=== PATIENT | male | born 1960 | race Caucasian/White ===

== ENCOUNTER 2017-03-29 14:05 | Inpatient (IN) ==
[2017-03-29] MEDS ORDERED: 0.9 % Sodium Chloride 1,000 ML IVC ONE ×2 (14:29→15:44)
--- NOTE | 2017-03-29 14:33 | Emergency Department Note ---
Disposition Clinical Impression: Uremia, ILIANA (acute kidney injury), Elevated troponin Disposition: Admitted As Inpatient Condition: Fair Referrals: NONE,PCP [Primary Care Provider] - Forms: ED Satisfaction Letter Neuro HPI - General Chief Complaint: ED Neuro Symptoms/Deficit Stated Complaint: Slurred Speech, Neck Pain Time Seen by Provider: 03/29/17 14:15 Source: patient Mode of arrival: ambulatory Limitations: no limitations Nursing Notes Reviewed: Yes Vital Signs Reviewed: Yes - History of Present Illness HPI Narrative: 56-year-old male history of hypertension, bovine valve replacement is for evaluation of neck pain and intermittent slurred speech since Monday. Patient' s last done well approximately at that time. Patient is not in the window of any TPA or thrombolytics. Patient denies any chest pressures of breath. Notes that the pain in the neck is worse with palpation. Denies any fevers or headache. Denies any nausea vomiting abdominal pain. No numbness or tingling of the extremities. No weakness of the extremities. Patient's slurred speech has been intermittent confirmed by the . Notes that he is at baseline currently. No history of strokes. Patient's blood glucose was normal. - Related Data Allergies/Adverse Reactions: Allergies Allergy/AdvReac Type Severity Reaction Status Date / Time No Known Allergies Allergy Verified 03/29/17 14:12 All systems ED: reviewed and negative except as stated. Constitutional: Reports: as per HPI. Denies: fever Eyes: Reports: as per HPI ENT ED: Reports: as per HPI Cardiovascular: Reports: as per HPI. Denies: chest pain Respiratory: Reports: as per HPI. Denies: cough, dyspnea Gastrointestinal: Reports: as per HPI. Denies: nausea, vomiting Genitourinary: Reports: as per HPI Musculoskeletal: Reports: as per HPI, neck pain Integumentary: Reports: as per HPI Neurological: Reports: as per HPI. Denies: headache, weakness, numbness Psychiatric: Reports: as per HPI Endocrine: Reports: as per HPI Hematological/Lymphatic: Reports: as per HPI Past Medical History - Past Medical History Medical history: Reports: arthritis, valvular heart disease, other - Social History Smoking Status: Never smoker Alcohol use: Reports: none Drug use: Reports: none Physical Exam - General Limitations: no limitations General appearance: alert, in no apparent distress - Head Head exam: atraumatic, normocephalic, normal inspection - Eye Eye exam: Present: normal appearance, EOMI - ENT ENT exam: normal exam, normal oropharynx - Neck Neck exam: Present: normal inspection, tenderness (Lateral paracervical) - Chest Chest inspection: Present: normal inspection, symmetric chest wall rise - Respiratory Respiratory exam: Present: normal lung sounds bilaterally. Absent: respiratory distress - Cardiovascular Cardiovascular exam: Present: regular rate, normal rhythm - Abdominal Exam Abdominal exam: Present: soft, Non-Tender - Extremities Exam Extremities exam: Present: normal inspection. Absent: pedal edema - Back Exam Back exam: Present: normal inspection - Neurological Exam Neurological exam: Present: alert, oriented X3, CN II-XII intact - Expanded Neurological Exam Patient oriented to: Present: person, place, time Speech: Present: fluid speech Cranial nerves: EOM function (II, III, IV, ): Normal, facial sensation (V): Normal, facial palsy (VII): Normal, spinal accessory function (XI): Normal, tongue deviation (XII): Normal Cerebellar function: finger to nose: Normal Motor strength - LUE: 5/5 Motor strength - RUE: 5/5 Motor strength - LLE: 5/5 Motor strength - RLE: 5/5 Upper motor neuron exam: pronator drift: Absent bilaterally Sensory exam upper extremity: light touch: Normal Sensory exam lower extremity: light touch: Normal Coma Scale Eye Opening: Spontaneous Coma Scale Motor Response: Obeys Commands Coma Scale Verbal Response: Oriented Coma Scale Total: 15 - Skin Skin exam: Present: warm, dry, intact, normal color Course Course Narrative: Patient seen and examined. Patient is not a stroke alert given the timeframe. Patient has no focal neurologic deficits. Patient's speech is back to baseline. Patient NIH of 0. Patient does not have any dysarthria on exam. Patient has no history of strokes. Patient will get a cardiac as well as neurological evaluation. Patient will get a CT of the head as well as cervical spine given his tenderness. Disposition likely admission. - Reevaluation(s) Reevaluation #1: Patient seen and examined. Patient denies any history of kidney problems. Patient had a "normal" physical year ago. Patient continues to produce urine. Time: 15:45 Vital Signs Temperature 98.6 F 03/29/17 14:07 Pulse Rate 80 03/29/17 14:07 Respiratory Rate 16 03/29/17 14:07 Blood Pressure 108/69 03/29/17 14:07 O2 Sat by Pulse Oximetry 97 03/29/17 14:07 Temperature 98.6 F 03/29/17 14:07 Pulse Rate 69 03/29/17 15:17 Respiratory Rate 16 03/29/17 15:17 Blood Pressure 95/61 03/29/17 15:17 O2 Sat by Pulse Oximetry 94 03/29/17 15:17 Oxygen Delivery Oxygen Delivery Nasal Cannula Neuro Symptoms/Deficit - MDM Narrative Medical decision making narrative: 56 yo male presents for evaluation of dysphagia. Patient had a neurologic as well as cardiac workup. Patient's CT his head shows no acute abnormalities. Patient's troponin was elevated at 0.04 with no acute EKG changes. However the patient's more concerning laboratory values show acute kidney injury which is likely prerenal given his history that he has been drinking her tolerating liquids due to his aggressive work lifestyle. Patient is also uremic which appear somewhat compensated with his bicarbonate. Patient continues to produce urine. Patient was given 2 L of normal saline. Patient also getting urinalysis and urine lites. She will be admitted to the hospital service further care management. Patient was given an aspirin given his negative head CT as well as elevated troponin. - Lab Data Lab results reviewed: Yes I reviewed the patient's lab results. Result diagrams: 03/29/17 14:25 03/29/17 14:25 Lab Results 03/29/17 03/29/17 03/29/17 Range/Units 14:25 14:25 14:25 WBC 7.1 (4.3-11.1) K/mcL RBC 3.61 L (4.19-5.50) M/mcL Hgb 11.0 L (12.9-16.9) g/dL Hct 35.3 L (37.5-50.1) % MCV 97.8 (83.0-100.0) fL MCH 30.5 (28.0-33.3) pg MCHC 31.2 L (31.6-35.5) g/dL RDW 14.6 H (11.5-14.5) % Plt Count 212 (140-400) K/mcL MPV 10.3 (9.4-12.4) fL Immature Gran % 0.4 (0-4) % Seg Neutrophils % 67.8 % Lymphocytes % 15.7 % Monocytes % 13.1 % Eosinophils % 2.7 % Basophils % 0.3 % Neutrophils # 4.8 (1.6-8.9) K/mcL Lymphocytes # 1.1 (0.6-4.6) K/mcL Monocytes # 0.9 (0.0-1.3) K/mcL Eosinophils # 0.2 (0.0-0.6) K/mcL Basophils # 0.0 (0.0-0.2) K/mcL PT 10.8 (9.4-12.1) Seconds INR 1.0 APTT 30.0 (26.0-36.0) Seconds Sodium 136 (136-145) mEq/L Potassium 5.5 H (3.5-4.5) mEq/L Chloride 99 (98-109) mEq/L Carbon Dioxide 20 (19-29) mEq/L BUN 110 H (8-26) mg/dL Creatinine 6.43 H (0.72-1.25) mg/dL Est GFR ( Amer) 11 L (> 60) Est GFR (Non-Af Amer) 9 L (> 60) BUN/Creatinine Ratio 17 (6-26) Glucose 99 (70-99) mg/dL Calculated Osmolality 317 H (280-300) Calcium 9.0 (8.6-10.8) mg/dL Troponin I (0-0.03) ng/mL 03/29/17 Range/Units 14:25 WBC (4.3-11.1) K/mcL RBC (4.19-5.50) M/mcL Hgb (12.9-16.9) g/dL Hct (37.5-50.1) % MCV (83.0-100.0) fL MCH (28.0-33.3) pg MCHC (31.6-35.5) g/dL RDW (11.5-14.5) % Plt Count (140-400) K/mcL MPV (9.4-12.4) fL Immature Gran % (0-4) % Seg Neutrophils % % Lymphocytes % % Monocytes % % Eosinophils % % Basophils % % Neutrophils # (1.6-8.9) K/mcL Lymphocytes # (0.6-4.6) K/mcL Monocytes # (0.0-1.3) K/mcL Eosinophils # (0.0-0.6) K/mcL Basophils # (0.0-0.2) K/mcL PT (9.4-12.1) Seconds INR APTT (26.0-36.0) Seconds Sodium (136-145) mEq/L Potassium (3.5-4.5) mEq/L Chloride (98-109) mEq/L Carbon Dioxide (19-29) mEq/L BUN (8-26) mg/dL Creatinine (0.72-1.25) mg/dL Est GFR ( Amer) (> 60) Est GFR (Non-Af Amer) (> 60) BUN/Creatinine Ratio (6-26) Glucose (70-99) mg/dL Calculated Osmolality (280-300) Calcium (8.6-10.8) mg/dL Troponin I 0.04 H* (0-0.03) ng/mL - Radiology Data Radiology results reviewed: Yes I reviewed the patient's radiology results. Chest X-Ray 03/29/17 14:29 IMPRESSION: Minimal left basilar atelectasis. No evidence of acute cardiopulmonary disease otherwise. D/ / Eliseo Rhoades MD / Eliseo Rhoades MD Interpreting Provider: Eliseo Rhoades MD Cervical Spine CT 03/29/17 14:30 IMPRESSION: No acute abnormality of the cervical spine. Moderate multilevel degenerative disc disease and facet arthropathy throughout the cervical spine. If there are neurologic symptoms, MRI could be performed for further evaluation. D/ / Quincy Leal MD / Quincy Leal MD Interpreting Provider: Quincy Leal MD Head CT 03/29/17 14:30 IMPRESSION: 1. No acute intracranial abnormality. D/ / Wilfrido Kaba MD / Wilfrido Kaba MD Interpreting Provider: Wilfrido Kaba MD - EKG Data EKG attestation: Yes I reviewed and interpreted this EKG. EKG shows normal: sinus rhythm Rate: normal Rhythm: NSR [place]/QRS: normal Heart block present: 1st Degree Q waves: aVR, v1 Interpretation: no acute changes, nonspecific ST-T wave changes NIH Stroke Scale - Level of Consciousness LOC: Alert - LOC Questions LOC Questions: Answers both correctly - LOC Commands LOC Commands: Performs both correctly - Best Gaze Best Gaze: Normal - Visual Visual: No visual loss - Facial Palsy Facial Palsy: Normal - Motor Arms Motor Arm-Left: No drift for 10 seconds Motor Arm-Right: No drift for 10 seconds - Motor Legs Motor Leg-Left: No drift for 5 seconds Motor Leg-Right: No drift for 5 seconds - Limb Ataxia Limb Ataxia: Absent of affected limb too weak to perform exam - Sensory Sensory: Normal - Best Language Best Language: No aphasia - Dysarthria Dysarthria: Normal - Extinction and Inattention Extinction and Inattention: Normal - NIHSS Total Score NIHSS Total Score: 0 Attestation Statement - Attestation Attestation: I, Freddie Herrera DO, examined this patient [id number] and my medical decision-making was reviewed with Dr. Mock PGY -3 , Resident Physician. I agree with the documented findings, disposition and treatment plan as described except to the extent set forth below. Please see my progress notes for details. 26-year-old male presents to emergency room with several weeks' worth of generalized malaise weakness and confusion and intermittent as well as slurred speech. The was concerned about emergency room. Initial evaluation was not concerning for an acute stroke. He is well outside the window. Evaluation was completed with concern for this issue including CT patient brought a significantly elevated creatinine in the urine at this time. No other infectious etiology noted. Patient has been using pain medication as well as anti-inflammatory medication heavily over the last several weeks to month. Patient is alert answers questions appropriately but slightly somnolent. Hospitals contacted for admission and treatment of what appears to be prerenal kidney injury with significantly elevated creatinine. No other lab abnormalities noted at this time except for mildly elevated troponin of 0.04. Patient stable laboratory. Patient was evaluated by the hospitalist at the bedside. No other concerns or issues noted. Patient will be admitted for definitive management. See detailed documentation by resident physician
[2017-03-29 15:09] LABS: Basophils % 0.3 %; Eosinophils # 0.2 K/mcL (0.0-0.6); Eosinophils % 2.7 %; Hematocrit 35.3 % (37.5-50.1); Immature Granulocytes % 0.4 % (0-4); Lymphocytes # 1.1 K/mcL (0.6-4.6); Lymphocytes % 15.7 %; Mean Corpuscular HGB Conc 31.2 g/dL (31.6-35.5); Mean Corpuscular Hemoglobin 30.5 pg (28.0-33.3); Mean Corpuscular Volume 97.8 fL (83.0-100.0); Mean Platelet Volume 10.3 fL (9.4-12.4); Monocytes # 0.9 K/mcL (0.0-1.3); Monocytes % 13.1 %; Neutrophils # 4.8 K/mcL (1.6-8.9); Platelet Count 212 K/mcL (140-400); Red Blood Count 3.61 M/mcL (4.19-5.50); Red Cell Distribution Width 14.6 % (11.5-14.5); Segmented Neutrophils % 67.8 %
[2017-03-29 15:12] LABS: Prothrombin Time 10.8 Seconds (9.4-12.1)
[2017-03-29 15:20] LABS: Potassium 5.5 mEq/L (3.5-4.5)
[2017-03-29] MEDS ORDERED: Aspirin 81 MG TAB.CHEW PO ONE (15:43)
[2017-03-29] MEDS ORDERED: Acetaminophen 325 MG TABLET PO PRN (17:19)
[2017-03-29] MEDS ORDERED: Naloxone 0.4 MG/ML INJ IVP PRN (17:19)
[2017-03-29] MEDS ORDERED: Ondansetron 4 MG/2 ML VIAL IVP PRN (17:19)
[2017-03-29] MEDS ORDERED: Pantoprazole 40 MG VIAL IVP SCH (17:30)
[2017-03-29 17:36] LABS: Bilirubin,Urine Negative (Negative); Blood,Urine Negative (Negative); Clarity,Urine Turbid (Clear); Color,Urine Yellow (Yellow); Glucose,Urine (UA) Normal (Normal); Ketones,Urine Negative (Negative); Leukocyte Esterase,Urine Negative (Negative); Nitrite,Urine Negative (Negative); PH,Urine 5.5 pH Units (5.0-8.0); Protein,Urine Trace mg/dL (Neg-Trace); Specific Gravity,Urine 1.017 (1.010-1.025); Urobilinogen,Urine Normal (Normal)
[2017-03-29 17:41] LABS: Bacteria,Urine None Seen per hpf (None-Few); Hyaline Casts,Urine None Seen per lpf (None-Few); Squamous Epithelial Cell,Urine None Seen per lpf (None-Few); WBC,Urine 0-3 per hpf (0-3)
--- NOTE | 2017-03-29 17:52 | Internal Med History&Physical ---
<Jose Urena - Last Filed: 03/29/17 18:55> Date of Encounter: 03/29/17 Time of Encounter: 16:30 Assessment and Plan (1) ILIANA (acute kidney injury) Current visit: Yes Status: Acute Assess: Patient presents with acute kidney injury most likely due to a combination of patient's possible dehydration related to overworking himself in the yard over the weekend and his chronic use of nephrotoxic pain medications for many years. Patient reports that he has no problem making large amounts of urine. Patient's current GFR on admission is 9 and creatinine is 6.43. Plan: Will hold patient's pain medications at the present time Administer IV 0.9 NS @ 100 mL/HR Tylenol 650 mg Q6 PRN for pain Monitor I&O and daily weight Follow-up labs ordered to monitor patient's GFR and creatinine levels Nephrology consult ordered (2) Elevated troponin Current visit: Yes Status: Acute Assess: Patient presents with acute elevated troponin upon admission to ED. Patient's initial troponin was 0.04. Patient denies any chest pain or cardiac symptoms at this time as well as any previous cardiac event or AK. Elevated troponin may be related to patient's current ILIANA. Plan: Trend troponins x2 Patient placed on continuous cardiac telemetry Nitroglycerin ordered PRN Echocardiogram ordered (3) Abnormal ECG Current visit: Yes Status: Acute Assess: Patient presents with acute EKG changes today showing ectopic atrial rhythm with first-degree AV block with occasional supraventricular premature complexes and nonspecific T-wave abnormality. Plan: Repeat EKG Patient to be placed on continuous cardiac telemetry Trend troponins x2 Echocardiogram ordered Administer IV 0.9 NS @ 100 mL/HR for possible dehydration (4) Neck pain, acute Current visit: Yes Status: Acute Assess: Patient presents with reported acute neck pain since Monday when he worked in his yard for 9 hours. Patient states he was cutting a large and tall shrubbery for 9 hours and attributes his neck pain to overworking his muscles. Patient currently takes several pain medications which are nephrotoxic and could be related to his current GFR of 9 due to overuse. Plan: Heating pad ordered for patient's neck PRN Will hold patient's pain medications due to nephrotoxicity and current ILIANA/GFR of 9 Administer Tylenol 650 mg Q6 (5) Muscle cramps Current visit: Yes Status: Acute Assess: Patient reports acute muscle cramps since Monday when he overworked in his yard for 9 hours. Patient states muscle cramps are mostly in his legs but also in his arms. Plan: Magnesium level ordered Will hold patient's pain medications and administer Tylenol 650 mg due to current ILIANA Monitor patient for pain (6) Somnolence Current visit: Yes Status: Acute Assess: Patient presents with acute somnolence which he attributes to over working in his yard on Monday for 9 hours and not sleeping well since. Patient also takes several types of pain medications for chronic back pain which can also be leading to his somnolent state. Plan: Falls precautions Up with assist Bed rest with bathroom privileges with assist only Will hold patient's pain medications and continue Tylenol 650 Q6 PRN due to current GFR of 9 and current somnolence (7) DVT prophylaxis Current visit: Yes Status: Acute Assess: Patient placed on DVT prophylaxis due to current admission protocol and bedrest status. Plan: Heparin 5,000 units SQ Q8 ordered Internal Medicine - H&P: HPI Chief complaint: Neck pain/Generalized fatigue Admitted From: Emergency Dept Plans for Post Hospital Care: Home History of present illness: Mr. Grey is a 56 year old male presents from the ED with chief complaint of muscle cramps, neck pain, and generalized weakness. Upon admission to ED, patient was originally reviewed for possible neuro symptoms and deficits, the patient is neurologically intact on examination and states his somnolence and speech slurring is due to being tired from having no sleep since Monday. Patient reports working in his yard on Monday from noon until 9 PM with heavy exertion to cut hedges and shrubbery. Patient now presents with pain in his neck that he states is most likely due to being overworked. He also describes muscle cramps in legs as well as arms. Patient has no history of stroke, previous AK, DVT, PE, or TIAs. Patient currently denies any chest pressure or pain, recent illness, fever, chills, headache, nausea, vomiting, abdominal pain , numbness or tingling of the extremities, diarrhea, constipation, dizziness, presyncope, or syncope. Patient reports he is a former smoker but quit in 1996 after smoking one half packs per day. Patient reports occasional alcohol use but denies drug use. Patient does report chronic back pain and chronic NSAID use for many years and is found to have creatinine level .43 and GFR 9 upon admission today with acute kidney injury. Patient's current hemoglobin is 11.0 and hematocrit is 35.3 which is normally near his baseline. Also on admission, troponin level is 0.04. CT of head without contrast today shows no acute intracranial abnormality. CT of the cervical spine without contrast today shows no acute abnormality of the cervical spine moderate multilevel degenerative disc disease and facet arthropathy throughout the cervical spine. Single view of the chest today shows minimal left basilar atelectasis and no evidence of acute cardiopulmonary disease otherwise. Patient is at moderate risk for further morbidity based on current symptoms and acute kidney injury related to chronic NSAID use and will be placed as inpatient status with orders for troponins trended 2, continuous cardiac telemetry, supplemental O2 with SPO2 monitoring, falls/safety precautions,gentle hydration of IV 0.9 normal saline at 100 mL per hour due to possible dehydration. Follow-up labs ordered to monitor patient's GFR and creatinine level. We will hold the patient's current pain medications due to nephrotoxicity and administer Tylenol 650 mg every 6 when necessary. Patient to be monitored closely for signs of increasing renal, cardiac, and/or respiratory distress. Time spent with patient greater than 40 minutes. Past Med Surg Social Fam HX - Past Medical History Source: patient Medical history: arthritis, renal disease, valvular heart disease, other - Social History Smoking Status: Never smoker Alcohol use: none Drug use: none Current living situation: Home, With Family Activity Level: Independent ambulation Recent Out of Country Travel Within the Last 8 Weeks: No Exposure or Possible Exposure to Illness During Travel: No - Family History Father Race: Family Member Ethnicity: Non- Living Status: Age at : 77 Cause of : AK Hx Family Cardiac Disorders: Yes (AK, Stroke, CHF, HTN, HLD) Hx Family Genitourinary Disorders: Yes (Renal disease) Hx Family Endocrine Disorder: Yes (DM) Mother Race: Family Member Ethnicity: Non- Living Status: Still Living Hx Family Cancer: Yes (Colon) Brother Race: Family Member Ethnicity: Non- Living Status: Still Living Hx Family Medical Disorders: No Sister Race: Family Member Ethnicity: Non- Living Status: Still Living Hx Family Medical Disorders: No Internal Medicine - H&P: Meds Aspirin Enteric Coated [Aspirin EC] 81 mg PO DAILY 03/29/17 [History] FentaNYL PATCH [Duragesic] 12 mcg TD Q72H 03/29/17 [History] FentaNYL PATCH [Duragesic] 25 mcg TD Q72H 03/29/17 [History] Ibuprofen [Ibuprofen] 800 mg PO TID 03/29/17 [History] Lisinopril [Zestril] 20 mg PO TID 03/29/17 [History] Oxycodone HCl 15 mg PO Q6H PRN 03/29/17 [History] Pregabalin [Lyrica] 150 mg PO TID PRN 03/29/17 [History] Tizanidine HCl 4 mg PO QID 03/29/17 [History] Tramadol HCl [Ultram] 50 mg PO Q4H PRN 03/29/17 [History] 3 Allergy/AdvReac Type Severity Reaction Status Date / Time No Known Allergies Allergy Verified 03/29/17 14:12 All Systems PM: A 10-system review of systems was performed and is negative for pertinent findings except as documented above in the HPI. - Constitutional Constitutional: as per HPI, fatigue, weakness, no chills, no fever(s), no night sweats - EENT Eyes: no change in vision, no discharge, no pain, no photophobia Ears: no ear discharge, no ear pain, no tinnitus Nose, mouth and throat: no dysphagia, no nasal discharge, no neck pain, no sore throat - Breasts Breasts: as per HPI - Cardiovascular Cardiovascular ROS IM: as per HPI, dyspnea, dyspnea on exertion, irregular heart rhythm, no chest pain, no diaphoresis, no lightheadedness, no palpitations , no syncope - Respiratory Respiratory: dyspnea, dyspnea on exertion, no cough, no wheezing, no excessive phlegm production - Gastrointestinal Gastrointestinal: no abdominal pain, no diarrhea, no hematemesis, no hematochezia, no melena, no nausea, no vomiting - Genitourinary Genitourinary ROS male: as per HPI - Musculoskeletal Musculoskeletal ROS IM: no numbness, no tingling - Integumentary Integumentary IM: no rash, no unusual bruising - Neurological Neurological ROS: no confusion, no convulsions, no focal weakness, no numbness, no tingling, no tremor(s) - Psychiatric Psychiatric: as per HPI - Endocrine Endocrine IM: as per HPI - Hematologic/Lymphatic Hematologic/Lymphatic: no easy bruising - Allergic/Immunologic Allergic/Immunologic: as per HPI - Constitutional Vitals: Temp Pulse Resp BP Pulse Ox 98.6 F 64 16 113/95 97 03/29/17 14:07 03/29/17 17:32 03/29/17 17:32 03/29/17 17:32 03/29/17 17:32 General appearance: Present: cooperative, A&O X 3, morbidly obese, pleasant, no acute distress, answers questions appropriately - Head Head exam: Present: atraumatic, normocephalic - Eye Eye exam: Present: PERRL, conjuntiva pink, sclera anicteric Pupils: Present: PERRL - ENT ENT exam: Present: normal exam, normal external ear exam - Neck Neck exam general surgery: Present: normal inspection, supple, trachea midline. Absent: lymphadenopathy - Respiratory Respiratory exam: Present: CTAB. Absent: accessory muscle use, rales, rhonchi, wheezes - Cardiovascular Cardiovascular exam: Present: irregular rhythm - GI/Abdominal GI/Abdominal exam: Present: normal bowel sounds, soft, no peritoneal signs. Absent: distended, tenderness - Rectal Rectal exam: Present: deferred - Additional comments: exam deferred. - Extremities Exam Extremities exam: Present: warm, radial pulses palpable and symmetrical. Absent : calf tenderness, cyanotic, pedal edema - Back Exam Back exam: Present: normal inspection - Neurological Exam Neurological exam: Present: CN II-XII intact, oriented X3, no focal deficits. Absent: pronater drift, facial droop, speech deficit - Psychiatric Psychiatric exam: Present: normal affect, normal mood - Skin Skin exam: Present: dry, intact Internal Med - H&P Results - Labs CBC & Chem 7: 03/29/17 14:25 03/29/17 14:25 - EKG Data Prior EKG available for review: yes When compared to previous EKG: there are significant changes EKG comments: 03/29/17 17:59 EKG dated 05/05/06 shows first-degree AV block, premature atrial contractions, Q waves in septal leaflet, probable old septal infarction. EKG dated 03/29/17 shows ectopic atrial rhythm with first-degree AV block with occasional supraventricular premature complexes, nonspecific T-wave abnormality. - Diagnostic Studies Chest x-ray Additional comments: Impressions Chest X-Ray 03/29/17 14:29 IMPRESSION: Minimal left basilar atelectasis. No evidence of acute cardiopulmonary disease otherwise. D/ / Eliseo Rhoades MD / Eliseo Rhoades MD Interpreting Provider: Eliseo Rhoades MD CT scan - head Additional comments: Impressions Head CT 03/29/17 14:30 IMPRESSION: 1. No acute intracranial abnormality. D/ / Wilfrido Kaba MD / Wilfrido Kaba MD Interpreting Provider: Wilfrido Kaba MD Other Images Additional comments: Impressions Cervical Spine CT 03/29/17 14:30 IMPRESSION: No acute abnormality of the cervical spine. Moderate multilevel degenerative disc disease and facet arthropathy throughout the cervical spine. If there are neurologic symptoms, MRI could be performed for further evaluation. D/ / Quincy Leal MD / Quincy Leal MD Interpreting Provider: Quincy Leal MD <Michele Pacheco - Last Filed: 03/30/17 07:49> Date of Encounter: 03/30/17 Internal Medicine - H&P: HPI History of present illness: Mr. Grey is a 56 year old male All Systems PM: A 10-system review of systems was performed and is negative for pertinent findings except as documented above in the HPI. - Constitutional Vitals: Temp Pulse Resp BP Pulse Ox 98.0 F 67 16 126/78 94 03/30/17 07:19 03/30/17 07:19 03/30/17 07:19 03/30/17 07:19 03/30/17 07:19 Internal Med - H&P Results - Labs CBC & Chem 7: 03/30/17 03:51 03/30/17 03:51 Labs: Short CBC 03/30/17 Range/Units 03:51 WBC 4.5 (4.3-11.1) K/mcL Hgb 10.7 L (12.9-16.9) g/dL Hct 34.3 L (37.5-50.1) % Plt Count 202 (140-400) K/mcL Neutrophils # 2.7 (1.6-8.9) K/mcL BMP 03/30/17 03:51 Sodium 135 L Potassium 5.5 H Chloride 105 Carbon Dioxide 21 BUN 91 H Creatinine 3.04 H D Glucose 125 H Calcium 8.8 Cardiac Enzymes 03/29/17 03/30/17 Range/Units 20:12 03:51 Troponin I 0.03 0.03 (0-0.03) ng/mL - Impressions ITS Impressions Retroperitoneum Ultrasound 03/29/17 21:00 IMPRESSION: Unremarkable ultrasound of the kidneys without hydronephrosis. Increased postvoid bladder volume. Finding is nonspecific but can be seen with bladder outlet obstruction. D/ / 03/30/2017 07:01:38 Salas Cerrato MD / rustay Interpreting Provider: Salas Cerrato MD - Attending Attestation I had personally seen and examined the patient on March 29 and discussed the care management plan with advance nurse practitioner. Patient came in with neck pain which she was perhaps related to the physical activity he had while he was cleaning the yard. ER did CT cervical spine which was unremarkable except for some mild DJD. Incidental finding of acute renal failure noted in the ER and upon further exploration it was noted that patient has been using ibuprofen 800 mg 3 times a day on regular basis for 5 years or more decided to heavy dose oxycodone. He appeared quite somnolent but they are fully oriented therefore we have decided not to give him any more narcotics at this point. Nephrology is consulted. There is a concerned it could be ATN versus prerenal or a combination of both therefore a fluid challenge will also be given.
[2017-03-29] MEDS ORDERED: Nitroglycerin 0.4 MG TAB.SUBL SL PRN (18:22)
[2017-03-29] MEDS: 0.9 % Sodium Chloride 1,000 ML IVC SCH (18:59)
[2017-03-29] MEDS: *HR* Heparin 5,000 UNIT/ML VIAL SQ SCH (23:49)
[2017-03-29] MEDS ORDERED: *HR* OxyCODONE Immed Rel 15 MG TABLET PO PRN (23:57)
[2017-03-30] MEDS: 0.9 % Sodium Chloride 1,000 ML IVC SCH (02:06)
[2017-03-30 04:26] LABS: Basophils % 0.2 %; Eosinophils # 0.3 K/mcL (0.0-0.6); Eosinophils % 6.4 %; Hematocrit 34.3 % (37.5-50.1); Hemoglobin 10.7 g/dL (12.9-16.9); Immature Granulocytes % 0.4 % (0-4); Lymphocytes # 0.9 K/mcL (0.6-4.6); Lymphocytes % 20.8 %; Mean Corpuscular HGB Conc 31.2 g/dL (31.6-35.5); Mean Corpuscular Hemoglobin 30.2 pg (28.0-33.3); Mean Corpuscular Volume 96.9 fL (83.0-100.0); Mean Platelet Volume 10.5 fL (9.4-12.4); Monocytes # 0.6 K/mcL (0.0-1.3); Monocytes % 12.4 %; Neutrophils # 2.7 K/mcL (1.6-8.9); Platelet Count 202 K/mcL (140-400); Red Blood Count 3.54 M/mcL (4.19-5.50); Red Cell Distribution Width 14.5 % (11.5-14.5); Segmented Neutrophils % 59.8 %
[2017-03-30 04:31] LABS: INR 0.9; Prothrombin Time 9.9 Seconds (9.4-12.1)
[2017-03-30 04:34] LABS: Activated Partial Thrombo Time 28.7 Seconds (26.0-36.0)
[2017-03-30 04:44] LABS: Hemoglobin A1C 5.5 %
[2017-03-30 04:50] LABS: Calcium 8.8 mg/dL (8.6-10.8); Chol/HDL Ratio 3.1 (0-4.9); Magnesium 2.9 mg/dL (1.6-2.6); Potassium 5.5 mEq/L (3.5-4.5)
[2017-03-30] MEDS: Aspirin Enteric Coated 81 MG Tablet PO SCH (10:22)
[2017-03-30] MEDS: *HR* Heparin 5,000 UNIT/ML VIAL SQ SCH ×2 (10:22→16:28)
--- NOTE | 2017-03-30 12:00 | Nephrology Consult Note ---
Date of Encounter: 03/30/17 Time of Encounter: 11:56 Assessment and Plan (1) NICK (acute kidney injury) Current Visit: Yes Status: Acute Patient with nonoliguric acute kidney injury that appears to be secondary to prerenal azotemia/ATN from dehydration along with chronic NSAID use, and hypotension. At this time his renal function appears to be improving and his urine output is increasing. I anticipate that the patient's renal function will return to baseline (which is unknown at this time). I recommend discontinuing NSAIDs. Use Tylenol or opiates as needed for pain. Continue to hold lisinopril for now. Adjust medication for renal function. Renal ultrasound without obstruction. I recommended additional fluid today. (2) Rhabdomyolysis Current Visit: Yes Status: Acute Secondary to exertion. Follow CPK levels. Continue intravenous hydration. Qualifiers: Qualified Code(s): M62.82 - Rhabdomyolysis (3) Urinary retention Current Visit: Yes Status: Acute Etiology is unclear. I recommend repeating on an outpatient basis. Check postvoid residual prior to discharge. (4) Diastolic dysfunction Current Visit: Yes Status: Acute Patient with diastolic dysfunction. Control high blood pressure. (5) Hypertension Current Visit: Yes Status: Acute Blood pressures on the low side now. Continue to hold lisinopril. I recommend resuming lisinopril once his systolic pressure is greater than 130. Qualifiers: Qualified Code(s): I10 - Essential (primary) hypertension History of Present Illness - Reason for Consult Consult date: 03/30/17 Acute Kidney Injury - Chief Complaint Nick - History of Present Illness Mr. Grey is a 56 yo man with a history of valvular heart disease who presents with somnolence that was felt to be secondary to exertion from working 9 hours without a break. He was found to have acute kidney injury upon admission. He denies a history of kidney disease. He does admit to chronic NSAID use. At the time my evaluation his is at his bedside he had no chest pain, shortness of breath, or other complaints. Past Med Surg Social Fam HX - Past Medical History Medical history: arthritis, renal disease, valvular heart disease, other - Social History Smoking Status: Never smoker Alcohol use: none Drug use: none - Family History Father Race: Family Member Ethnicity: Non- Living Status: Age at : 77 Cause of : LA Hx Family Cardiac Disorders: Yes (LA, Stroke, CHF, HTN, HLD) Hx Family Genitourinary Disorders: Yes (Renal disease) Hx Family Endocrine Disorder: Yes (DM) Mother Race: Family Member Ethnicity: Non- Living Status: Still Living Hx Family Cancer: Yes (Colon) Brother Race: Family Member Ethnicity: Non- Living Status: Still Living Hx Family Medical Disorders: No Sister Race: Family Member Ethnicity: Non- Living Status: Still Living Hx Family Medical Disorders: No Medications and Allergies Aspirin Enteric Coated [Aspirin EC] 81 mg PO DAILY 03/29/17 [History] FentaNYL PATCH [Duragesic] 12 mcg TD Q72H 03/29/17 [History] FentaNYL PATCH [Duragesic] 25 mcg TD Q72H 03/29/17 [History] Ibuprofen [Ibuprofen] 800 mg PO TID 03/29/17 [History] Lisinopril [Zestril] 20 mg PO TID 03/29/17 [History] Oxycodone HCl 15 mg PO Q6H PRN 03/29/17 [History] Pregabalin [Lyrica] 150 mg PO TID PRN 03/29/17 [History] Tizanidine HCl 4 mg PO QID 03/29/17 [History] Tramadol HCl [Ultram] 50 mg PO Q4H PRN 03/29/17 [History] 3 Allergy/AdvReac Type Severity Reaction Status Date / Time No Known Allergies Allergy Verified 03/29/17 14:12 Review of Systems All Systems: reviewed and no additional remarkable complaints except as stated ( As documented in history of present illness) Exam - Vital Signs Vital signs: Initial Vital Signs Temp Pulse Resp BP Pulse Ox 98.6 F 80 16 108/69 97 03/29/17 14:07 03/29/17 14:07 03/29/17 14:07 03/29/17 14:07 03/29/17 14:07 Vital Signs - Last 8 Hours Temp Pulse Resp BP Pulse Ox 03/30/17 11:05 97.9 F 60 16 118/72 95 03/30/17 07:19 98.0 F 67 16 126/78 94 03/30/17 04:23 98.3 F 73 16 137/79 90 Intake and Output 03/29/17 03/30/17 03/30/17 23:59 07:59 15:59 Intake Total 4750 / 4750 1640 / 1640 Output Total 1100 / 1100 2049 Balance 3650 / 3650 -410 / -410 Intake: IV Fluids 1000 / 1000 1400 / 1400 0.9 % Sodium Chloride 1, 1000 / 1000 1400 / 1400 000 ML @ 100 mls/hr IVC . Q10H JESSICA Rx#:[id number] Oral 3750 / 3750 240 / 240 Output: Urine 1100 / 1100 2049 Other: Meal TURKEY SANDWICH,[employer]. MILK # Voids 1 1 Weight 121.109 kg 131.4 kg Patient Weight 03/30/17 23:59 Weight 131.4 kg - General Appearance General appearance: well-developed, well-nourished, obese EENT: ATNC Neck: supple Respiratory: clear Cardiology: edema, regular rate, regular rhythm Gastrointestinal: no tenderness, obese Integumentary: warm and dry Neurologic: alert and oriented x3 Musculoskeletal: no cyanosis Psychiatric: mood/affect appropriate Results - Lab Results 03/30/17 03:51 03/30/17 03:51 Most recent lab results Calcium 8.8 mg/dL (8.6-10.8) 03/30/17 03:51 Magnesium 2.9 mg/dL (1.6-2.6) H 03/30/17 03:51 Urine Creatinine 133 mg/dL 03/29/17 17:14 Urine Sodium 67.0 mEq/L 03/29/17 17:14 Consult Discharge Plan - Plan Referrals: NONE,PCP [Primary Care Provider] -
[2017-03-30] MEDS: *HR* OxyCODONE Immed Rel 15 MG TABLET PO PRN (16:28)
[2017-03-30 16:47] LABS: BUN/Creatinine Ratio 41 (6-26); Blood Urea Nitrogen 60 mg/dL (8-26); Calcium 9.4 mg/dL (8.6-10.8); Carbon Dioxide 24 mEq/L (19-29); Chloride 108 mEq/L (98-109); Glucose 95 mg/dL (70-99); Osmolality,Calculated 301 (280-300); Potassium 5.5 mEq/L (3.5-4.5); Sodium 137 mEq/L (136-145); eGFR For African Americans > 60 (> 60); eGFR For Non-African Americans 50 (> 60)
--- NOTE | 2017-03-30 16:55 | Electrocardiograph Report ---
[place] [id number] Test Date: 2017-03-29 Pat Name: Marcos Grey Department: 102 Room: 2A25 Gender: M [employer]: : 1960 Requested By: James Mock Order Number: [id number] Reading MD: Alie Chong Measurements Intervals Cost Rate: 74 P: -49 PA: 231 QRS: 18 QRSD: 102 T: 95 QT: 366 QTc: 394 Interpretive Statements POSSIBLE ECTOPIC ATRIAL RHYTHM WITH FIRST DEGREE AV BLOCK NONSPECIFIC T-WAVE ABNORMALITY Electronically Signed On 03-30-2017 16:53:40 EDT by Alie Chong
[2017-03-30 16:56] LABS: Bilirubin,Urine Negative (Negative); Blood,Urine Small (Negative); Clarity,Urine Clear (Clear); Color,Urine Yellow (Yellow); Glucose,Urine (UA) Normal (Normal); Ketones,Urine Negative (Negative); Leukocyte Esterase,Urine Negative (Negative); Nitrite,Urine Negative (Negative); Protein,Urine Negative (Neg-Trace); Specific Gravity,Urine 1.018 (1.010-1.025); Urobilinogen,Urine Normal (Normal)
[2017-03-30 16:59] LABS: Bacteria,Urine None Seen per hpf (None-Few); Hyaline Casts,Urine None Seen per lpf (None-Few); RBC,Urine 0-3 per hpf (0-3); Squamous Epithelial Cell,Urine Few per lpf (None-Few); WBC,Urine 0-3 per hpf (0-3)
[2017-03-30 17:27] LABS: Creatinine,Urine 47 mg/dL; Protein/Creatinine Ratio,Urine 0.15 mg/mg (0-0.20)
--- NOTE | 2017-03-30 18:53 | Event Note ---
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 HEENT: Moist oral mucosa. Chest: Central chest scar, chest is CTAB, HS S1, S2, soft, no m/g/r, Abdomen is obese, no pedal edema. Musculoskeletal: No focal tenderness, no compartment syndrome Labs and Imaging reviewed: K-5.5, BUN/Cr 91/3.04(111/6.43), CK 5111, UA noted, feNA 2.4%, Renal USS: Significant post-void volume, no hydro nephrosis, CXR: Negative for cardiopulmonary process, C-spine CT: DJD, no fractures A/P: Non-oliguric ILIANA Multifactorial: From dehydration, NSAID use, rhabdomyolysis, suspected BPH with mild CELAYA. Improving, continue IVF hydration. Avid nephrotoxins, follow ECHO. Elevated troponin is adynamic possibly from elevated CK. Monitor renal function, trend CK. Start tamsulosin for suspected BPH. Rest of details as in resident physicians documentation
--- NOTE | 2017-03-30 20:58 | Internal Med Progress Note ---
<Sj Alvarez - Last Filed: 03/30/17 21:03> Date of Encounter: 03/30/17 Time of Encounter: 15:30 - Assessment and plan (1) Hyperkalemia Current Visit: Yes Status: Acute Assessment and plan: Potassium was at 5.5. Kayexalate was given. Continue IV fluids. (2) Hypermagnesemia Current Visit: Yes Status: Acute Assessment and plan: Magnesium at 2.9. Patient's deep tendon reflexes normal. Continue IV fluids. (3) ILIANA (acute kidney injury) Current Visit: Yes Status: Acute Assessment and plan: Patient presents with signs of pre-renal, instrinsic, and possible post-renal injury. His FENa of 2.4% suggests an instrinisc RF. His BUN/Creatinine ration of 41 suggests pre-renal azotemia most likely secondary to chronic NSAID, rhabdomyalisis, and dehydration. Renal u/s shows increased postvoid bladder volume, which could correlate with a post-renal obstruction. His creatinine has improved to 1.45 from 3.04. Continue IV fluids. (4) Abnormal ECG Current Visit: Yes Status: Acute Assessment and plan: First degree AV blocks with occasional SVTs. No significant changes when compared to ECG from 2006. Patient denies chest pain. (5) DVT prophylaxis Current Visit: Yes Status: Acute Assessment and plan: On heparin. (6) Elevated troponin Current Visit: Yes Status: Acute Assessment and plan: Tropnins were 0.03 and 0.03. Likely secondary to dehydration. Patient denies chest pain. (7) Muscle cramps Current Visit: Yes Status: Acute Assessment and plan: Likely secondary to rhabdomyalisis and possibly hyperkalemia. Currently denies any pain. Continue IV fluids. (8) Rhabdomyolysis Current Visit: Yes Status: Acute Assessment and plan: CK was elevated at 5111 on presentation. Currently denies any pain. Continue IV fluids. Qualifiers: Qualified Code(s): M62.82 - Rhabdomyolysis - Time Spent With Patient less than 15 minutes - Subjective Interval history: Patient is a 56 yo M that presented to the ED yesterday for neck pain and fatigue. Patient states that he was doing yardwork for several hours on Monday. He started developing muscular cramps in his leg and arms. When he presented to the ED, he denied any chest pain or recent illness, fever, chills, headaches, nausea, vomiting, abdominal pain, numbness/tingling, syncope or presyncope. He denies any drug use. Patient also suffers from chronic lower back pain with chronic NSAID use for many years. CT of cervical spine showed no acute abnormality. Troponin on arrival was 0.04. CT of head showed no acute abnormality. CXR showed minimal bibasilar atelectasis with no evidence of acute cardioppulomary disease. Plan was to trend troponins, telemetry, IVF, and follow -up with his GFR and creatinine. Pain meds were held due to nephrotoxicity. Renal ultrasound showed no signs of hydronephrosis. When spoken to today, he currently denies any muscular cramps, numbness/tingling, chest pain, shortness of breath, headaches, syncope, light-headedness, dysuria, constipation, diarrhea , fever, or chills. . - Constitutional Vitals: Temp Pulse Resp BP Pulse Ox 98.0 F 60 22 165/93 96 03/30/17 20:34 03/30/17 20:34 03/30/17 20:34 03/30/17 20:34 03/30/17 20:34 General appearance: Present: cooperative, A&O X 3, morbidly obese, pleasant, no acute distress, answers questions appropriately - Respiratory Respiratory exam: Present: CTAB. Absent: respiratory distress, rhonchi, wheezes , tachypnea - Cardiovascular Cardiovascular exam: Present: RRR, +S1, +S2, systolic murmur (2/6 systolic murmur of R sternal border.) - GI/Abdominal GI/Abdominal exam: Present: normal bowel sounds, soft. Absent: distended, guarding, rebound, tenderness - Extremities Exam Extremities exam: Present: normal capillary refill. Absent: pedal edema Additional comments: pedal pulses intact bilaterally. - Neurological Exam Neurological exam: Present: reflexes normal, strengths equal and symetr throughout Internal Medicine: Result - Labs CBC & Chem 7: 03/30/17 03:51 03/30/17 16:27 Labs: Short CBC 03/30/17 Range/Units 03:51 WBC 4.5 (4.3-11.1) K/mcL Hgb 10.7 L (12.9-16.9) g/dL Hct 34.3 L (37.5-50.1) % Plt Count 202 (140-400) K/mcL Neutrophils # 2.7 (1.6-8.9) K/mcL BMP 03/30/17 03/30/17 03:51 16:27 Sodium 135 L 137 Potassium 5.5 H 5.5 H Chloride 105 108 Carbon Dioxide 21 24 BUN 91 H 60 H D Creatinine 3.04 H D 1.45 H D Glucose 125 H 95 Calcium 8.8 9.4 Cardiac Enzymes 03/30/17 Range/Units 03:51 Troponin I 0.03 (0-0.03) ng/mL Urine 03/30/17 Range/Units 16:35 Urine Color Yellow (Yellow) Urine Clarity Clear (Clear) Urine pH 6.0 (5.0-8.0) pH Units Ur Specific [place] 1.018 (1.010-1.025) Urine Protein Negative (Neg-Trace) mg/dL Urine Glucose (UA) Normal (Normal) mg/dL Laboratory Tests 03/30/17 03/30/17 03:51 16:27 Creatinine 1.45 H D Magnesium 2.9 H Laboratory Tests 03/29/17 03/29/17 14:25 20:12 Troponin I 0.04 H* 0.03 - ABG Interpretation ABG results: PT/INR, D-dimer PT 9.9 Seconds (9.4-12.1) 03/30/17 03:51 - Impressions Impressions Retroperitoneum Ultrasound 03/29/17 21:00 IMPRESSION: Unremarkable ultrasound of the kidneys without hydronephrosis. Increased postvoid bladder volume. Finding is nonspecific but can be seen with bladder outlet obstruction. D/ / 03/30/2017 07:01:38 Salas Cerrato MD / [facility] Interpreting Provider: Salas Cerrato MD Consult Discharge Plan - Plan Referrals: Mandeep Menjivar MD [Non-Partnered Physician] - (call at discharge per office. Will not schedule until then per office) <Alvaro Lowe T - Last Filed: 03/31/17 07:38> Date of Encounter: 03/31/17 - Constitutional Vitals: Temp Pulse Resp BP Pulse Ox 99.2 F 58 18 142/78 96 03/31/17 07:15 03/31/17 07:15 03/31/17 07:15 03/31/17 07:15 03/31/17 07:15 Internal Medicine: Result - Labs CBC & Chem 7: 03/31/17 04:07 03/31/17 04:07 Labs: Short CBC 03/31/17 Range/Units 04:07 WBC 4.5 (4.3-11.1) K/mcL Hgb 11.0 L (12.9-16.9) g/dL Hct 34.3 L (37.5-50.1) % Plt Count 162 (140-400) K/mcL Neutrophils # 3.0 (1.6-8.9) K/mcL BMP 03/30/17 03/31/17 16:27 04:07 Sodium 137 140 Potassium 5.5 H 5.3 H Chloride 108 110 H Carbon Dioxide 24 22 BUN 60 H D 40 H D Creatinine 1.45 H D 0.91 Glucose 95 104 H Calcium 9.4 9.3 Urine 03/30/17 Range/Units 16:35 Urine Color Yellow (Yellow) Urine Clarity Clear (Clear) Urine pH 6.0 (5.0-8.0) pH Units Ur Specific [place] 1.018 (1.010-1.025) Urine Protein Negative (Neg-Trace) mg/dL Urine Glucose (UA) Normal (Normal) mg/dL - ABG Interpretation ABG results: PT/INR, D-dimer PT 9.9 Seconds (9.4-12.1) 03/30/17 03:51 - Impressions Impressions Retroperitoneum Ultrasound 03/29/17 21:00 IMPRESSION: Unremarkable ultrasound of the kidneys without hydronephrosis. Increased postvoid bladder volume. Finding is nonspecific but can be seen with bladder outlet obstruction. D/ / 03/30/2017 07:01:38 Salas Cerrato MD / [email or web address] Interpreting Provider: Salas Cerrato MD - Attending Attestation see event note of same day
[2017-03-31] MEDS: *HR* Heparin 5,000 UNIT/ML VIAL SQ SCH ×3 (00:33→15:30)
[2017-03-31 04:47] LABS: Basophils % 0.2 %; Eosinophils # 0.2 K/mcL (0.0-0.6); Eosinophils % 3.5 %; Hematocrit 34.3 % (37.5-50.1); Immature Granulocytes % 0.2 % (0-4); Lymphocytes # 0.8 K/mcL (0.6-4.6); Lymphocytes % 18.4 %; Mean Corpuscular HGB Conc 32.1 g/dL (31.6-35.5); Mean Corpuscular Hemoglobin 30.6 pg (28.0-33.3); Mean Corpuscular Volume 95.5 fL (83.0-100.0); Mean Platelet Volume 11.4 fL (9.4-12.4); Monocytes # 0.5 K/mcL (0.0-1.3); Monocytes % 10.4 %; Platelet Count 162 K/mcL (140-400); Red Blood Count 3.59 M/mcL (4.19-5.50); Red Cell Distribution Width 14.3 % (11.5-14.5); Segmented Neutrophils % 67.3 %
[2017-03-31 05:04] LABS: BUN/Creatinine Ratio 44 (6-26); Calcium 9.3 mg/dL (8.6-10.8); Carbon Dioxide 22 mEq/L (19-29); Chloride 110 mEq/L (98-109); Glucose 104 mg/dL (70-99); Magnesium 2.3 mg/dL (1.6-2.6); Osmolality,Calculated 300 (280-300); Potassium 5.3 mEq/L (3.5-4.5); Sodium 140 mEq/L (136-145); eGFR For African Americans > 60 (> 60); eGFR For Non-African Americans > 60 (> 60)
[2017-03-31 05:05] LABS: Blood Urea Nitrogen 40 mg/dL (8-26)
[2017-03-31] MEDS: *HR* OxyCODONE Immed Rel 15 MG TABLET PO PRN ×2 (06:30→15:39)
[2017-03-31] MEDS ORDERED: Pregabalin 75 MG CAPSULE PO PRN (07:53)
[2017-03-31] MEDS: Aspirin Enteric Coated 81 MG Tablet PO SCH (07:58)
[2017-03-31] MEDS ORDERED: *HR* FentaNYL PATCH 12 MCG PATCH TD SCH (08:00)
[2017-03-31] MEDS ORDERED: *HR* FentaNYL PATCH 25 MCG PATCH TD SCH (08:00)
[2017-03-31] MEDS: amLODIPine 5 MG TABLET PO SCH (09:18)
--- NOTE | 2017-03-31 09:45 | Event Note ---
Date of Encounter: 03/31/17 Time of Encounter: 09:44 Nephrology Pt was out of the room. His SCr continues to trend better. Doing well from a renal perspective. Will sign-off, but please feel free to reconsult or page as needed. Thank you for having consulted [facility].
--- NOTE | 2017-03-31 16:50 | Internal Med Progress Note ---
<Alvaro Lowe T - Last Filed: 03/31/17 18:01> Date of Encounter: 03/31/17 - Constitutional Vitals: Temp Pulse Resp BP Pulse Ox 98.4 F 76 16 143/84 93 03/31/17 16:29 03/31/17 16:29 03/31/17 16:29 03/31/17 16:29 03/31/17 16:29 Internal Medicine: Result - Labs CBC & Chem 7: 03/31/17 04:07 03/31/17 04:07 Labs: Short CBC 03/31/17 Range/Units 04:07 WBC 4.5 (4.3-11.1) K/mcL Hgb 11.0 L (12.9-16.9) g/dL Hct 34.3 L (37.5-50.1) % Plt Count 162 (140-400) K/mcL Neutrophils # 3.0 (1.6-8.9) K/mcL BMP 03/31/17 04:07 Sodium 140 Potassium 5.3 H Chloride 110 H Carbon Dioxide 22 BUN 40 H D Creatinine 0.91 Glucose 104 H Calcium 9.3 - ABG Interpretation ABG results: PT/INR, D-dimer PT 9.9 Seconds (9.4-12.1) 03/30/17 03:51 - Impressions Impressions Retroperitoneum Ultrasound 03/29/17 21:00 IMPRESSION: Unremarkable ultrasound of the kidneys without hydronephrosis. Increased postvoid bladder volume. Finding is nonspecific but can be seen with bladder outlet obstruction. D/ / 03/30/2017 07:01:38 Salas Cerrato MD / [email or web address] Interpreting Provider: Salas Cerrato MD Consult Discharge Plan - Plan Referrals: Menjivar,Mandeep White MD [Non-Partnered Physician] - (call at discharge per office. 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 HEENT: Moist oral mucosa. Chest: Central chest scar, chest is CTAB, HS S1, S2, soft, loud AR murmur/no g/no r, Abdomen is obese, no pedal edema. Musculoskeletal: No focal tenderness, no compartment syndrome Labs and Imaging today reviewed: K-5.3, BUN/Cr 40/0.91 (60/1.4 A/P: Non-oliguric ILIANA Multifactorial: From dehydration, NSAID use, rhabdomyolysis, suspected BPH with mild CELAYA. Improving, D/C IVF, Hyperkalemia: Give kayexalate and repeat K p.m. Avoid nephrotoxins, Resume home pain meds, add Norvasc for HTN. Rest of details as in resident physicians documentation <Sj Alvarez - Last Filed: 03/31/17 18:48> Date of Encounter: 03/31/17 Time of Encounter: 10:30 - Assessment and plan (1) ILIANA (acute kidney injury) Current Visit: Yes Status: Acute Assessment and plan: Creatinine is downtrending from 1.45 to 0.91. Continue IV fluids. (2) Hyperkalemia Current Visit: Yes Status: Acute Assessment and plan: Potassium was elevated at 5.3. Given 30 gm PO kayexalate. Will reassess potassium tomorrow. (3) Rhabdomyolysis Current Visit: Yes Status: Acute Assessment and plan: Creatinine is downtrending. Continue IV fluids. Qualifiers: Qualified Code(s): M62.82 - Rhabdomyolysis (4) DVT prophylaxis Current Visit: Yes Status: Acute Assessment and plan: On Heparin. - Subjective Interval history: Patient is a 56 yo M that presented to the ED yesterday for neck pain and fatigue. Patient has been diagnosed with ILIANA and rhabdomyalisis. Yesterday's plan was to continue with IV fluids since his creatinine was improving. We gave him kayexalate for his hyperkalemia. Today he says he feels better. He denies any muscle aches, chest pain, shortness of breath, dysuria, hematuria, constipation, diarrhea, or blood in his stool. - Constitutional Vitals: Temp Pulse Resp BP Pulse Ox 98.4 F 76 16 143/84 93 03/31/17 16:29 03/31/17 16:29 03/31/17 16:29 03/31/17 16:29 03/31/17 16:29 General appearance: Present: cooperative, A&O X 3, morbidly obese, pleasant, no acute distress, answers questions appropriately - Respiratory Respiratory exam: Present: CTAB. Absent: respiratory distress, rhonchi, wheezes , tachypnea - Cardiovascular Cardiovascular exam: Present: RRR, +S1, +S2, systolic murmur Additional comments: +2/6 systolic ejection murmur heard best over the R sternal border. - GI/Abdominal GI/Abdominal exam: Present: normal bowel sounds, soft. Absent: guarding, rebound, tenderness - Extremities Exam Extremities exam: Present: normal capillary refill, radial pulses palpable and symmetrical. Absent: cyanotic, pedal edema Internal Medicine: Result - Labs CBC & Chem 7: 03/31/17 04:07 03/31/17 04:07 Labs: Short CBC 03/31/17 Range/Units 04:07 WBC 4.5 (4.3-11.1) K/mcL Hgb 11.0 L (12.9-16.9) g/dL Hct 34.3 L (37.5-50.1) % Plt Count 162 (140-400) K/mcL Neutrophils # 3.0 (1.6-8.9) K/mcL BMP 03/30/17 03/31/17 16:27 04:07 Sodium 137 140 Potassium 5.5 H 5.3 H Chloride 108 110 H Carbon Dioxide 24 22 BUN 60 H D 40 H D Creatinine 1.45 H D 0.91 Glucose 95 104 H Calcium 9.4 9.3 Urine 03/30/17 Range/Units 16:35 Urine Color Yellow (Yellow) Urine Clarity Clear (Clear) Urine pH 6.0 (5.0-8.0) pH Units Ur Specific [place] 1.018 (1.010-1.025) Urine Protein Negative (Neg-Trace) mg/dL Urine Glucose (UA) Normal (Normal) mg/dL Laboratory Tests 03/31/17 04:07 Calcium 9.3 Magnesium 2.3 - ABG Interpretation ABG results: PT/INR, D-dimer PT 9.9 Seconds (9.4-12.1) 03/30/17 03:51 - Impressions Impressions Retroperitoneum Ultrasound 03/29/17 21:00 IMPRESSION: Unremarkable ultrasound of the kidneys without hydronephrosis. Increased postvoid bladder volume. Finding is nonspecific but can be seen with bladder outlet obstruction. D/ / 03/30/2017 07:01:38 [facility] Inter[facility] Provider: Salas Cerrato MD
[2017-03-31 19:25] LABS: BUN/Creatinine Ratio 29 (6-26); Calcium 9.4 mg/dL (8.6-10.8); Carbon Dioxide 26 mEq/L (19-29); Chloride 109 mEq/L (98-109); Glucose 99 mg/dL (70-99); Osmolality,Calculated 299 (280-300); Potassium 4.8 mEq/L (3.5-4.5); Sodium 142 mEq/L (136-145); eGFR For African Americans > 60 (> 60); eGFR For Non-African Americans > 60 (> 60)
[2017-03-31 19:27] LABS: Blood Urea Nitrogen 27 mg/dL (8-26)
[2017-03-31] MEDS: Pregabalin 75 MG CAPSULE PO SCH (21:05)
[2017-04-01] MEDS: *HR* OxyCODONE Immed Rel 15 MG TABLET PO PRN ×2 (00:11→08:38)
[2017-04-01] MEDS: *HR* Heparin 5,000 UNIT/ML VIAL SQ SCH ×2 (00:11→08:35)
[2017-04-01 06:32] LABS: Basophils % 0.4 %; Eosinophils # 0.3 K/mcL (0.0-0.6); Hematocrit 35.1 % (37.5-50.1); Hemoglobin 11.4 g/dL (12.9-16.9); Immature Granulocytes % 0.4 % (0-4); Lymphocytes # 1.5 K/mcL (0.6-4.6); Lymphocytes % 27.4 %; Mean Corpuscular HGB Conc 32.5 g/dL (31.6-35.5); Mean Corpuscular Volume 95.4 fL (83.0-100.0); Mean Platelet Volume 11.1 fL (9.4-12.4); Monocytes # 0.7 K/mcL (0.0-1.3); Monocytes % 12.6 %; Neutrophils # 2.9 K/mcL (1.6-8.9); Platelet Count 205 K/mcL (140-400); Red Blood Count 3.68 M/mcL (4.19-5.50); Red Cell Distribution Width 14.5 % (11.5-14.5); Segmented Neutrophils % 54.2 %
[2017-04-01 06:37] LABS: BUN/Creatinine Ratio 25 (6-26); Blood Urea Nitrogen 22 mg/dL (8-26); Calcium 9.4 mg/dL (8.6-10.8); Carbon Dioxide 27 mEq/L (19-29); Chloride 108 mEq/L (98-109); Glucose 95 mg/dL (70-99); Osmolality,Calculated 299 (280-300); Sodium 143 mEq/L (136-145); eGFR For African Americans > 60 (> 60); eGFR For Non-African Americans > 60 (> 60)
[2017-04-01 06:41] LABS: Potassium 4.3 mEq/L (3.5-4.5)
[2017-04-01] MEDS: Pregabalin 75 MG CAPSULE PO SCH (08:34)
[2017-04-01] MEDS: amLODIPine 5 MG TABLET PO SCH (08:34)
[2017-04-01] MEDS: Aspirin Enteric Coated 81 MG Tablet PO SCH (08:34)
--- NOTE | 2017-04-01 09:43 | Discharge Summary ---
Date of Encounter: 04/01/17 Time of Encounter: 11:00 - Discharge Diagnosis (1) ILIANA (acute kidney injury) Priority: Primary Status: Resolved (2) Elevated troponin Priority: Primary Status: Resolved (3) Muscle cramps Priority: Primary Status: Resolved (4) Abnormal ECG Priority: Secondary Status: Chronic (5) Rhabdomyolysis Priority: Primary Status: Resolved Qualifiers: Rhabdomyolysis type: non-traumatic Qualified Code(s): M62.82 - Rhabdomyolysis (6) Diastolic dysfunction Priority: Secondary Status: Chronic (7) Hypertension Priority: Primary Status: Chronic Qualifiers: Hypertension type: essential hypertension Qualified Code(s): I10 - Essential (primary) hypertension (8) Hyperkalemia Priority: Primary Status: Resolved (9) Hypermagnesemia Priority: Primary Status: Resolved - Discharge Medications Prescriptions: Amlodipine Besylate 10 mg PO DAILY #30 tablet Tamsulosin [Flomax] 0.4 mg PO DAILY #30 tab Home Medications: Aspirin Enteric Coated [Aspirin EC] 81 mg PO DAILY 03/29/17 [History] FentaNYL PATCH [Duragesic] 12 mcg TD Q72H 03/29/17 [History] FentaNYL PATCH [Duragesic] 25 mcg TD Q72H 03/29/17 [History] Oxycodone HCl 15 mg PO Q6H PRN 03/29/17 [History] Pregabalin [Lyrica] 150 mg PO AD 03/29/17 [History] Tizanidine HCl 4 mg PO QID 03/29/17 [History] Tramadol HCl [Ultram] 50 mg PO Q4H PRN 03/29/17 [History] Amlodipine Besylate 10 mg PO DAILY #30 tablet 04/01/17 [Rx] Tamsulosin [Flomax] 0.4 mg PO DAILY #30 tab 04/01/17 [Rx] Allergies/Adverse Reactions: 3 Allergy/AdvReac Type Severity Reaction Status Date / Time No Known Allergies Allergy Verified 03/29/17 14:12 Procedures/tests Complete & Pending: Procedures Performed prior 72 hours Category Date Time Status Retroperitoneal Ultrasound - Complete [US Exams 03/29/17 21:00 Completed retroperitoneal comp] [US] Routine Date of admission: 03/29/17 17:33 Primary care physician: PCP NONE Consults: 03/29/17 18:52 Consult to Nephrology [CONS] Routine Consulting Provider: [facility]/ORIMI/VIOLETA/NIMCO Reason for Consult: Patient presents with ILIANA due to chronic pain medication use for years of back pain. Patient's GFR on admission is 9 and creatinine is 6.43. Will hold patient's pain medications and hydrate with IV NS due to possible dehydration. Call Completed: Yes Discharging clinician: Alvaro Lowe Anticipated date of discharge: 04/01/17 - Patient Status Disposition: Home, Self-Care Condition: Good Functional capacity at discharge: independent ambulation Overall status at discharge: patient is progressing back to baseline - Discharge Instructions Instructions: Amlodipine (By mouth), Tamsulosin (By mouth), Chronic Hypertension (DC) Follow Up With: Mandeep Menjivar MD [Non-Partnered Physician] - (call at discharge per office. Will not schedule until then per office) Additional Instructions: Follow up with your doctor Ensure adequate oral intake of fluids Avoid NSAIds. 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 He had some bradycardia on tele overnight due to some runs of NSVT, not caught on EKG as EKG this morning is normal sinus rhythm. He is asymptomatic. He denies dizziness, CP, Palpitation, he denies shortness of breath, denies leg swelling. Patient states he had an ablation in the past, and is known to have bradycardia with some SVTs. He has a gang miner he sees regularly running outside. His renal function has returned to baseline, and he has been clinically stable. He is stable to be discharged home. We have stopped Lisinopril (he took 20mg TID prior to admission and Ibuprofen for pain), and educated him about avodiance of nephrotoxins. He was started on amlodipine for his blood pressure, well tolerated He had elevated troponins, secondary to rhabdomyolysis, his EKG was non-ischemic , his ECHO was noed for restrictive diastolic dysfunction(chronic per patient), with no WMA and EF of 60-65%. he is s/p biologic AVR with normal function by doppler parameters He was also started on tamsulosin for suspected BPH as his post-void volume was >250cc on admission He will follow up with his PCP and gang miner within a week He verbalized understanding - Time Spent with Patient Total time spent providing and/or coordinating discharge services: Greater than 30 minutes - Constitutional Vitals: Temp Pulse Resp BP Pulse Ox 98.5 F 81 18 171/99 95 04/01/17 06:54 04/01/17 06:54 04/01/17 06:54 04/01/17 06:54 04/01/17 06:54 VSS, BP uncontrolled, Morbidly Obese, not in distress. HEENT: Moist oral mucosa. Chest: Central chest scar, chest is CTAB, HS S1, S2, soft, loud AR murmur/no g/no r, Abdomen is obese, no pedal edema. Musculoskeletal: No focal tenderness, no compartment syndrome General appearance: Present: cooperative, A&O X 3, morbidly obese, pleasant, no acute distress, answers questions appropriately
[2017-04-01 12:11] VITALS: BP 149/97
--- NOTE | 2017-04-05 10:06 | Electrocardiograph Report ---
[address] [place] [address] Test Date: 2017-04-01 Pat Name: Marcos Grey Department: 112 Room: 2A25 Gender: M [employer]: REAGAN : 1960 Requested By: Alvaro Lowe Order Number: [id number] Reading MD: Renae Dyer Measurements Intervals [place] Rate: 60 P: -67 [place]: 179 QRS: 30 QRSD: 101 T: 33 QT: 420 QTc: 420 Interpretive Statements SINUS RHYTHM WITH OCCASIONAL SUPRAVENTRICULAR PREMATURE COMPLEXES SEPTAL MYOCARDIAL INFARCTION, OF INDETERMINATE AGE Electronically Signed On 04-05-2017 10:04:44 EDT by Renae Dyer
--- NOTE | 2017-04-05 11:18 | Electrocardiograph Report ---
[place] [address] Test Date: 2017-04-01 Pat Name: Marcos Grey Department: 112 Room: 2A25 Gender: M [employer]: [employer] : 1960 Requested By: Alvaro Lowe Order Number: [id number] Reading MD: Renae Dyer Measurements Intervals [place] Rate: 92 P: 89 IN: 251 QRS: 14 QRSD: 97 T: 48 QT: 361 QTc: 411 Interpretive Statements SINUS RHYTHM WITH FIRST DEGREE AV BLOCK NONSPECIFIC T-WAVE ABNORMALITY Electronically Signed On 04-05-2017 11:17:09 EDT by Renae Dyer
== END 2017-04-01 13:19 | disposition home or self-care (01) | DRG 683 ==
LOC: EMEROO 14:05 → 2ANU 14:05 → SUATTDRO 17:33 → 2ANU 18:13
PROVIDERS: ADMIT Internal Medicine; ATTEND Internal Medicine